=== PATIENT | male | born 1945 | race Caucasian/White ===

== ENCOUNTER 2022-08-05 07:43 | Inpatient (IN) | payer MEDICARE ==
[2022-08-05] MEDS ORDERED: SODIUM CHLORIDE 0.9% 500 ML 500 ML IV STA (08:11)
[2022-08-05] MEDS ORDERED: KETOROLAC 15 MG/ML 1 ML VIAL IVP STA (08:12)
[2022-08-05 08:36] LABS: Basophils # (A) 0.1 k/uL (0-0.2); Basophils % (A) 1 %; Eosinophils # (A) 0.3 k/uL (0-0.7); Eosinophils % (A) 3 %; HCT 32.5 % (39.0-53.0); HGB 10.5 gm/dL (13.0-17.5); Lymphocytes # (A) 0.4 k/uL (1.0-4.8); Lymphocytes % (A) 4 %; MCH 32.5 pg (25.0-35.0); MCHC 32.4 g/dL (31.0-37.0); MCV 100.4 fL (80.0-100.0); Mean Platelet Volume 8.3; Monocytes # (A) 0.5 k/uL (0-1.0); Monocytes % (A) 5 %; Neutrophils # (A) 9.2 k/uL (1.3-7.7); Neutrophils % (A) 87 %; Platelet Count 336 k/uL (150-450); RBC 3.23 m/uL (4.30-5.90); WBC 10.6 k/uL (3.8-10.6)
--- NOTE | 2022-08-05 08:37 | ED ---
Back Pain HPI - General Chief Complaint: Back Pain/Injury Stated Complaint: back pain Time Seen by Provider: 08/05/22 07:52 Source: patient Limitations: no limitations - History of Present Illness Initial Comments: Patient is a 77-year-old male who presents to the emergency department for back pain. Patient has had mild lower back pain for the past week. He denies injury no recent falls. Pain is not influenced by movement. There is no leg pain or weakness. No numbness or tingling. Patient also reports intermittent dysuria and frequent urination. He denies history of urinary tract infection. He has not noticed any blood in the urine. No history of kidney stone. He denies abdominal pain, nausea, vomiting, diarrhea, constipation. No fever or chills. No chest pain or shortness of breath. Patient hasn't had a primary care provider for many years. He denies history of kidney disease. - Related Data Allergies Allergy/AdvReac Type Severity Reaction Status Date / Time No Known Allergies Allergy Verified 08/05/22 07:51 Review of Systems ROS Statement: Those systems with pertinent positive or pertinent negative responses have been documented in the HPI. ROS Other: All systems not noted in ROS Statement are negative. Past Medical History Past Medical History: No Reported History History of Any Multi-Drug Resistant Organisms: None Reported Additional Past Surgical History / Comment(s): perforated ulcer, tongue surgery. Past Psychological History: No Psychological Hx Reported Smoking Status: Former smoker Past Alcohol Use History: Occasional Past Drug Use History: None Reported General Exam Limitations: no limitations General appearance: alert, in no apparent distress Head exam: Present: atraumatic, normocephalic, normal inspection Eye exam: Present: normal appearance, PERRL, EOMI. Absent: scleral icterus, conjunctival injection, periorbital swelling Respiratory exam: Present: normal lung sounds bilaterally. Absent: respiratory distress, wheezes, rales, rhonchi, stridor Cardiovascular Exam: Present: regular rate, normal rhythm, normal heart sounds. Absent: systolic murmur, diastolic murmur, rubs, gallop, clicks GI/Abdominal exam: Present: soft, normal bowel sounds. Absent: distended, tenderness, guarding, rebound, rigid Extremities exam: Present: normal inspection, full ROM, normal capillary refill Back exam: Present: normal inspection, full ROM. Absent: CVA tenderness (R), CVA tenderness (L), paraspinal tenderness, vertebral tenderness Neurological exam: Present: alert, oriented X3, CN II-XII intact Psychiatric exam: Present: normal affect, normal mood Course Vital Signs 08/05/22 08/05/22 08/05/22 07:45 10:01 10:11 Temperature 97.4 F L Pulse Rate 85 77 78 Respiratory 16 Rate Blood Pressure 167/79 O2 Sat by Pulse 98 Oximetry Medical Decision Making - Medical Decision Making EKG taken at 9:46, interpreted by me Sinus rhythm, no ST segment or T-wave abnormalities Ventricular rate 79, VT interval 151, QRS duration 109, QTC 406 Was pt. sent in by a medical professional or institution (, PA, FURNITURE FINISHER APPRENTICE, urgent care, hospital, or [place] health care facility...) When possible be specific @ -No Did you speak to anyone other than the patient for history (EMS, parent, family, police, friend...)? What history was obtained from this source @ -No Did you review nursing and triage notes (agree or disagree)? Why? @ -I reviewed and agree with nursing and triage notes Were old charts reviewed (outside hosp., previous admission, EMS record, old EKG, old radiological studies, urgent care reports/EKG's, [place] health care facility records)? Report findings @ -No old charts were reviewed Differential Diagnosis (chest pain, altered mental status, abdominal pain women, abdominal pain men, vaginal bleeding, weakness, fever, dyspnea, syncope, headache, dizziness, GI bleed, back pain, seizure, CVA, palpatations, mental health)? @ -Differential Back Pain: Strain, zoster, cauda equina syndrome, epidural abscess, vertebral osteomyelitis, discitis, fracture, subluxation, disc herniation, DJD, spinal stenosis, dissection, AAA, pancreatitis, peptic ulcer disease, pyelonephritis, kidney stone, acute renal failure. this is not meant to be an all-inclusive list. EKG interpreted by me (3pts min.). @ -As above X-rays interpreted by me (1pt min.). @ -None done CT interpreted by me (1pt min.). @ -None done U/S interpreted by me (1pt. min.). @ -No. Ultrasound report shows moderate to severe hydronephrosis bilaterally What testing was considered but not performed or refused? (CT, X-rays, U/S, labs)? Why? @ -None What meds were considered but not given or refused? Why? @ -None Did you discuss the management of the patient with other professionals (professionals i.e. , PA, FURNITURE FINISHER APPRENTICE, lab, RT, psych nurse, medical social worker, watch inspector final movement, teacher, youth probation officer, case therapist)? Give summary @ -No Was smoking cessation discussed for >3mins.? @ -No Was critical care preformed (if so, how long)? @ -No Were there social determinants of health that impacted care today? How? (Homelessness, low income, unemployed, alcoholism, drug addiction, transportation, low edu. Level, literacy, decrease access to med. care, fpc, rehab)? @ -No Was there de-escalation of care discussed even if they declined (Discuss DNR or withdrawal of care, Hospice)? DNR status @ -No What co-morbidities impacted this encounter? (DM, HTN, Smoking, COPD, CAD, Cancer, CVA, ARF, Chemo, Hep., AIDS, mental health diagnosis, sleep apnea, morbid obesity)? @ -None Was patient admitted / discharged? Hospital course, mention meds given and route, prescriptions, significant lab abnormalities, going to OR and other pertinent info. @ -Patient presenting for back pain. No symptoms or signs of cauda equina. Laboratory studies obtained. Patient in acute renal failure. Creatinine at 20.83, BUN a 175, no previous for comparison. There is anion gap acidosis, carbon dioxide at 7, anion gap at 26. Patient is hyperkalemic at 6.9. Ultrasound report shows moderate to severe hydronephrosis bilaterally. Patient treated with hyperkalemia regimen. Vázquez catheter placed 1200 cc urine output. Case discussed with Dr. Rliey patient will have repeat labs in 4 hours. Case discussed with Dr. Dugan who accepts admission. Undiagnosed new problem with uncertain prognosis? @ -No Drug Therapy requiring intensive monitoring for toxicity (Heparin, Nitro, Insulin, Cardizem)? @ -No Were any procedures done? @ -No Diagnosis/symptom? @ -Acute renal failure, urinary retention Acute, or Chronic, or Acute on Chronic? @ -acute Uncomplicated (without systemic symptoms) or Complicated (systemic symptoms)? @ -uncomplicated Side effects of treatment? @ -No Exacerbation, Progression, or Severe Exacerbation? @ -No Poses a threat to life or bodily function? How? (Chest pain, USA, GA, pneumonia, PE, COPD, DKA, ARF, appy, cholecystitis, CVA, Diverticulitis, Homicidal, Suicidal, threat to staff... and all critical care pts) @ -No Dr. Su is my attending - Lab Data Result diagrams: 08/05/22 08:22 08/05/22 08:22 Lab Results 08/05/22 08/05/22 Range/Units 08:22 08:22 WBC 10.6 (3.8-10.6) k/uL RBC 3.23 L (4.30-5.90) m/uL Hgb 10.5 L (13.0-17.5) gm/dL Hct 32.5 L (39.0-53.0) % MCV 100.4 H (80.0-100.0) fL MCH 32.5 (25.0-35.0) pg MCHC 32.4 (31.0-37.0) g/dL RDW 14.0 (11.5-15.5) % Plt Count 336 (150-450) k/uL MPV 8.3 Neutrophils % 87 % Lymphocytes % 4 % Monocytes % 5 % Eosinophils % 3 % Basophils % 1 % Neutrophils # 9.2 H (1.3-7.7) k/uL Lymphocytes # 0.4 L (1.0-4.8) k/uL Monocytes # 0.5 (0-1.0) k/uL Eosinophils # 0.3 (0-0.7) k/uL Basophils # 0.1 (0-0.2) k/uL Sodium 135 L (137-145) mmol/L Potassium 6.9 H* (3.5-5.1) mmol/L Chloride 102 (98-107) mmol/L Carbon Dioxide 7 L* (22-30) mmol/L Anion Gap 26 mmol/L BUN 175 H* (9-20) mg/dL Creatinine 20.83 H* (0.66-1.25) mg/dL Est GFR (CKD-EPI)AfAm 2 (>60 ml/min/1.73 sqM) Est GFR (CKD-EPI)NonAf 2 (>60 ml/min/1.73 sqM) Glucose 78 (74-99) mg/dL Calcium 9.0 (8.4-10.2) mg/dL Total Bilirubin 1.0 (0.2-1.3) mg/dL AST 17 (17-59) U/L ALT 17 (4-49) U/L Alkaline Phosphatase 56 (38-126) U/L Total Protein 6.1 L (6.3-8.2) g/dL Albumin 3.6 (3.5-5.0) g/dL Lipase 365 H (23-300) U/L Disposition Clinical Impression: Acute renal failure, Urinary retention Disposition: ADMITTED IP TO THIS [facility] Condition: Stable
[2022-08-05 08:52] LABS: Albumin 3.6 g/dL (3.5-5.0); Total Protein 6.1 g/dL (6.3-8.2)
[2022-08-05 09:05] LABS: Potassium 6.9 mmol/L (3.5-5.1)
[2022-08-05] MEDS ORDERED: INSULIN REGULAR 100 UNIT/ML VIAL (IV) IV ONE ×2 (09:37→12:29)
[2022-08-05] MEDS ORDERED: SODIUM BICARB 8.4% 50 ML SYR (1 MEQ/ML) IV ONE (09:37)
[2022-08-05] MEDS ORDERED: ALBUTEROL NEB (CONC) 2.5 MG/0.5 ML INHALATION ONE (09:37)
[2022-08-05] MEDS ORDERED: CALCIUM GLUCONATE IN NACL 1 GM in SALINE 1 100ML.BAG IVPB ONE (09:37)
[2022-08-05] MEDS ORDERED: DEXTROSE 50% SYRINGE 50 ML IVP ONE (09:37)
[2022-08-05] MEDS ORDERED: SODIUM POLYSTYRENE SULFONATE 15 GM/60 ML BOTTLE PO STA (09:37)
--- NOTE | 2022-08-05 10:13 | US ---
EXAMINATION TYPE: US kidneys/renal and bladder DATE OF EXAM: 08/05/2022 COMPARISON: NONE CLINICAL INDICATION: Male, 77 years old with history of renal failure; EXAM MEASUREMENTS: Right Kidney: 10.5 x 5.1 x 5.0 cm Left Kidney: 13.1 x 8.5 x 6.5 cm Right Kidney: Hydronephrosis noted Left Kidney: Hydronephrosis noted Bladder: overly distended IMPRESSION: Moderate to severe bilateral hydronephrosis. Follow-up is advised.
[2022-08-05 10:54] LABS: Appearance,Urine Clear (Clear); Bilirubin,Urine Negative (Negative); Blood,Urine Moderate (Negative); Color,Urine Yellow; Glucose,Urine (UA) Negative (Negative); Ketones,Urine Negative (Negative); Leukocyte Esterase,Urine Negative (Negative); Mucus,Urine Rare /hpf; Nitrite,Urine Negative (Negative); Protein,Urine Negative (Negative); RBC,Urine 54 /hpf (0-5); Specific Gravity,Urine 1.011 (1.001-1.035); Urobilinogen,Urine <2.0 mg/dL (<2.0); WBC,Urine 4 /hpf (0-5)
[2022-08-05] MEDS ORDERED: NALOXONE 0.4 MG/ML 1 ML VIAL IV PRN (10:56)
[2022-08-05] MEDS ORDERED: ACETAMINOPHEN TAB 325 MG TAB PO PRN (10:56)
[2022-08-05] MEDS ORDERED: SODIUM CHLORIDE 0.9% 1,000 ML IV STA (11:01)
[2022-08-05] MEDS ORDERED: DEXTROSE 50% SYRINGE 50 ML IVP STA (12:29)
[2022-08-05] MEDS: DEXTROSE 5% IN WATER 1,000 ML with SODIUM BICARB (1 MEQ/ML) 150 ML IV SCH (12:55)
[2022-08-05 14:51] LABS: ALT 19 U/L (4-49); AST 17 U/L (17-59); Albumin 3.1 g/dL (3.5-5.0); Albumin/Globulin Ratio 1.3; Alkaline Phosphatase 49 U/L (38-126); Anion Gap 19 mmol/L; Calcium 9.2 mg/dL (8.4-10.2); Carbon Dioxide 12 mmol/L (22-30); Chloride 108 mmol/L (98-107); Globulin 2.3 g/dL; Glucose 97 mg/dL (74-99); Sodium 139 mmol/L (137-145); Total Bilirubin 0.7 mg/dL (0.2-1.3); Total Protein 5.4 g/dL (6.3-8.2)
[2022-08-05 15:26] LABS: African American GFR (CKD) 3 (>60 ml/min/1.73 sqM); Non-African American GFR(CKD) 2 (>60 ml/min/1.73 sqM)
[2022-08-05 15:48] LABS: Blood Urea Nitrogen 157 mg/dL (9-20)
[2022-08-05 19:54] LABS: Glucose,Whole Blood 222 mg/dL (70-110)
--- NOTE | 2022-08-05 21:29 | P.HPIM ---
History of Present Illness H&P Date: 08/05/22 Chief Complaint: Back pain Patient is a 77-year-old male with a known history of hearing disorder/deafness, history of tongue cancer status post surgery with lymph node biopsy, perforated ulcer in 1984, prior history of smoking and alcohol abuse presents to ER with complaints of back pain. Patient states that he has been having symptoms for the past 1 week. Denies any complaints of shooting down pain in the legs. Pain does not get worse with movement. No numbness or tingling in the legs. For past 1 week patient has been having frequent urination but only can void small quantities. He was also having lower abdominal discomfort. Denies any blood in the urine. No fever no chills. No nausea vomiting abdominal pain or diarrhea or constipation. Patient has not had any primary care physician for many years. Denies any recent medical problems. Bladder ultrasound showed moderate to severe bilateral hydronephrosis. Follow- up visit as advised. EKG showed sinus rhythm. No T wave changes Laboratory showed WBC 10.6 hemoglobin 10.5 and platelets 336 Sodium 135 potassium 6.9 chloride 102 bicarb is 7 BUN 26 and gap 26, BUN 175 and creatinine 20.8 and total protein 6.1 and lipase level is 365 Urinalysis showed moderate blood elevated RBCs and WBCs 4. Placed on Vázquez catheter in the ER with 1300 cc of dark-colored urine. Review of Systems Constitutional: Patient denies any fever or chills . no Generalized weakness. Abdomen: Patient denied any nausea or vomiting or abd. pain Cardiovascular: Patient denies any chest pain or short of breath no palpitations. Respiratory: patient denied any cough . no sputum production. No shortness of breath Neurologic: Patient denied any numbness or tingling headache. Musculoskeletal: Patient denies any complaints of joint swelling or deformity. Lower back pain. Skin: Negative Psychiatric: Negative Endocrine: No heat or cold intolerance. No recent weight gain. Genitourinary: Did have frequency of urination and dysuria. All other 14 point ROS negative except the above Past Medical History Past Medical History: Hearing Disorder / Deafness Additional Past Medical History / Comment(s): tongue cancer History of Any Multi-Drug Resistant Organisms: None Reported Additional Past Surgical History / Comment(s): perforated ulcer 1984, tongue surgery for cancer tumor with lymph node biopsy, left 1st finger tendon repair Past Anesthesia/Blood Transfusion Reactions: No Reported Reaction Past Psychological History: No Psychological Hx Reported Smoking Status: Former smoker Past Alcohol Use History: Abuse Past Drug Use History: None Reported Medications and Allergies Home Medications Medication Instructions Recorded Confirmed Type Naproxen Sodium [Aleve] 220 mg PO DAILY 08/05/22 08/05/22 History Allergies Allergy/AdvReac Type Severity Reaction Status Date / Time No Known Allergies Allergy Verified 08/05/22 11:27 Physical Exam Vitals: Vital Signs Temp Pulse Pulse Resp BP BP Pulse Ox 08/05/22 13:20 97.0 F L 83 19 138/68 98 08/05/22 11:25 98.0 F 78 18 154/82 97 08/05/22 10:11 78 08/05/22 10:01 77 08/05/22 07:45 97.4 F L 85 16 167/79 98 Intake and Output 08/04/22 08/05/22 08/05/22 22:59 06:59 14:59 Intake Total 1348 Output Total 3050 Balance -1702 Intake: Intake, IV Titration 1230 Amount Calcium Gluconate in NaCl 100 1 gm In Saline 1 100ml. bag @ 400 mls/hr IVPB ONCE ONE Rx#:[id number] Dextrose 5% in Water 1, 480 000 ml @ 80 mls/hr IV . [id number] BRADLEY with Sodium Bicarb (1 Meq/ml) 150 ml Rx#:[id number] Sodium Chloride 0.9% 1, 150 000 ml @ 75 mls/hr IV . [id number] STA Rx#:[id number] Sodium Chloride 0.9% 500 500 ml 500 ml @ 999 mls/hr IV .Q31M STA Rx#:[id number] Oral 118 Output: Urine 3050 Uretheral (Vázuqez) 1200 Other: Voiding Method Indwelling Catheter Weight 81.647 kg PHYSICAL EXAMINATION: Patient is lying in the bed comfortably, no acute distress, awake alert and oriented. hard of hearing. HEENT: Normocephalic. Neck is supple. Pupils reactive. Nostrils clear. Oral cavity is moist. Neck reveals no JVD, carotid bruits, or thyromegaly. CHEST EXAMINATION: Trachea is central. Symmetrical expansion. Lung osman clear to auscultation and percussion. CARDIAC: Normal S1, S2 with no gallops. No murmurs ABDOMEN: Soft. Bowel sounds present. Nontender. No organomegaly. No abdominal bruits. Extremities: reveal no edema. No clubbing or cyanosis Neurologically awake, alert, oriented x2-3 with well-coordinated movements. No focal deficits noted Skin: No rash or skin lesions. Psychiatric: Coperative. Nonsuicidal, Musculoskeletal: No joint swelling or deformity. Normal range of motion. Results CBC & Chem 7: 08/05/22 08:22 08/05/22 14:27 Labs: Abnormal Lab Results - Last 24 Hours (Table) 08/05/22 08/05/22 08/05/22 Range/Units 08:22 08:22 10:30 RBC 3.23 L (4.30-5.90) m/uL Hgb 10.5 L (13.0-17.5) gm/dL Hct 32.5 L (39.0-53.0) % MCV 100.4 H (80.0-100.0) fL Neutrophils # 9.2 H (1.3-7.7) k/uL Lymphocytes # 0.4 L (1.0-4.8) k/uL Sodium 135 L (137-145) mmol/L Potassium 6.9 H* (3.5-5.1) mmol/L Carbon Dioxide 7 L* (22-30) mmol/L BUN 175 H* (9-20) mg/dL Creatinine 20.83 H* (0.66-1.25) mg/dL Total Protein 6.1 L (6.3-8.2) g/dL Lipase 365 H (23-300) U/L Urine Blood Moderate H (Negative) Urine RBC 54 H (0-5) /hpf Urine Mucus Rare H (None) /hpf 08/05/22 Range/Units 10:41 RBC (4.30-5.90) m/uL Hgb (13.0-17.5) gm/dL Hct (39.0-53.0) % MCV (80.0-100.0) fL Neutrophils # (1.3-7.7) k/uL Lymphocytes # (1.0-4.8) k/uL Sodium (137-145) mmol/L Potassium 7.5 H* (3.5-5.1) mmol/L Carbon Dioxide (22-30) mmol/L BUN (9-20) mg/dL Creatinine (0.66-1.25) mg/dL Total Protein (6.3-8.2) g/dL Lipase (23-300) U/L Urine Blood (Negative) Urine RBC (0-5) /hpf Urine Mucus (None) /hpf Thrombosis Risk Factor Assmnt - DVT/VTE Prophylaxis DVT/VTE Prophylaxis: Pharmacologic Prophylaxis ordered - Choose All That Apply Each Risk Factor Represents 3 Points: Age 75 years or older Thrombosis Risk Factor Assessment Total Risk Factor Score: 3 Thrombosis Risk Factor Assessment Level: Moderate Risk Assessment and Plan Assessment: Acute urinary retention with moderate left hydronephrosis Acute kidney injury due to obstructive uropathy. Severe hyperkalemia Macrocytic anemia with hemoglobin 10.5 History of tongue cancer s/p surgery with lymph node biopsy History of perforated ulcer in 1984 Prior history of smoking History of alcohol abuse DVT prophylaxis with heparin subcu GI prophylaxis with Pepcid daily Plan: Patient was given IV fluid in ER. Patient was also given calcium gluconate, IV insulin/D50 in the ER. Follow-up potassium level is 7.5. Continue with bicarb drip and follow-up repeat potassium level in an hour and consider MICU transfer if still elevated. Patient is status post Vázquez catheter placement. Nephrology and urology consult for evaluation. Continue telemetry monitoring. Discussed with the patient and his family at bedside in detail. Time with Patient: Greater than 30
[2022-08-05 23:44] LABS: African American GFR (CKD) 5 (>60 ml/min/1.73 sqM); Anion Gap 12 mmol/L; Calcium 8.9 mg/dL (8.4-10.2); Carbon Dioxide 18 mmol/L (22-30); Chloride 111 mmol/L (98-107); Glucose 176 mg/dL (74-99); Non-African American GFR(CKD) 5 (>60 ml/min/1.73 sqM); Sodium 141 mmol/L (137-145)
[2022-08-05 23:55] LABS: Blood Urea Nitrogen 110 mg/dL (9-20)
[2022-08-05] MEDS: HEPARIN SODIUM,PORCINE/PF 5,000 UNIT/0.5 ML SYRINGE SQ SCH (23:59)
[2022-08-06] MEDS: DEXTROSE 5% IN WATER 1,000 ML with SODIUM BICARB (1 MEQ/ML) 150 ML IV SCH ×2 (05:43→15:32)
[2022-08-06 05:50] LABS: Glucose,Whole Blood 156 mg/dL (70-110)
[2022-08-06] MEDS: FAMOTIDINE 20 MG TAB PO SCH (09:47)
[2022-08-06] MEDS: HEPARIN SODIUM,PORCINE/PF 5,000 UNIT/0.5 ML SYRINGE SQ SCH ×3 (09:47→23:59)
--- NOTE | 2022-08-06 11:02 | P.GSCN ---
History of Present Illness Consult date: 08/06/22 Reason for Consult: Urinary retention Requesting physician: Ramón Dugan History of present illness: Patient is a 77-year-old male who presented to the emergency department on 08/05/22 for lower back pain x 1 week. He denied injury no recent falls. No leg pain or weakness. No numbness or tingling. Patient also reported intermittent dysuria and frequent urination. He denied abdominal pain, nausea, vomiting, mukund rrhea, constipation. No fever or chills. No chest pain or shortness of breath. Patient has not had a primary care provider for many years. He denied history of kidney disease. No leukocytosis present, his creatinine was 20.83, his urinalysis did not suggest infection. Nephrology following for LAURA. Renal and bladder ultrasound shows moderate to severe bilateral hydronephrosis and an overly distended bladder. The Vázquez catheter was placed with 1.2 L returned. We have been consulted for urinary retention. Review of Systems - Constitutional Reports chronic pain, Denies chills, Denies fever - Gastrointestinal Denies abdominal pain, Denies nausea, Denies vomiting - Genitourinary Reports dysuria, Reports urinary frequency, Denies hematuria Past Medical History Past Medical History: Hearing Disorder / Deafness Additional Past Medical History / Comment(s): tongue cancer History of Any Multi-Drug Resistant Organisms: None Reported Additional Past Surgical History / Comment(s): perforated ulcer 1984, tongue surgery for cancer tumor with lymph node biopsy, left 1st finger tendon repair Past Anesthesia/Blood Transfusion Reactions: No Reported Reaction Past Psychological History: No Psychological Hx Reported Smoking Status: Former smoker Past Alcohol Use History: Abuse Past Drug Use History: None Reported Medications and Allergies Home Medications Medication Instructions Recorded Confirmed Type Naproxen Sodium [Aleve] 220 mg PO DAILY 08/05/22 08/05/22 History Allergies Allergy/AdvReac Type Severity Reaction Status Date / Time No Known Allergies Allergy Verified 08/05/22 11:27 Surgical - Exam Vital Signs Temp Pulse Resp BP Pulse Ox 97.4 F L 85 16 167/79 98 08/05/22 07:45 08/05/22 07:45 08/05/22 07:45 08/05/22 07:45 08/05/22 07:45 General: Well developed, well nourished. No acute distress. HEENT: Head is atraumatic, normocephalic. Lungs: Respirations even and nonlabored. On RA. Abdomen/GI: Soft, non-distended. No guarding, rigidity, or abdominal tenderness. : Normal phallus, normal urethral meatus. The scrotum and testes are normal. Vázquez catheter draining dark yellow urine Skin: Warm and dry Neurologic: Alert and oriented 3, CN II-XII grossly intact. No focal deficits. Psychiatric: Appropriate mood and affect. Results - Labs 08/05/22 08:22 08/05/22 22:27 Abnormal Lab Results - Last 24 Hours (Table) 08/05/22 08/05/22 08/05/22 Range/Units 10:30 10:41 14:27 Potassium 7.5 H* (3.5-5.1) mmol/L Chloride 108 H (98-107) mmol/L Carbon Dioxide 12 L (22-30) mmol/L BUN 157 H* (9-20) mg/dL Creatinine 16.64 H* (0.66-1.25) mg/dL Glucose (74-99) mg/dL POC Glucose (mg/dL) (70-110) mg/dL Total Protein 5.4 L (6.3-8.2) g/dL Albumin 3.1 L (3.5-5.0) g/dL Urine Blood Moderate H (Negative) Urine RBC 54 H (0-5) /hpf Urine Mucus Rare H (None) /hpf 08/05/22 08/05/22 08/06/22 Range/Units 19:52 22:27 05:48 Potassium (3.5-5.1) mmol/L Chloride 111 H (98-107) mmol/L Carbon Dioxide 18 L (22-30) mmol/L BUN 110 H* (9-20) mg/dL Creatinine 9.94 H* (0.66-1.25) mg/dL Glucose 176 H (74-99) mg/dL POC Glucose (mg/dL) 222 H 156 H (70-110) mg/dL Total Protein (6.3-8.2) g/dL Albumin (3.5-5.0) g/dL Urine Blood (Negative) Urine RBC (0-5) /hpf Urine Mucus (None) /hpf Diabetes panel 08/05/22 08/05/22 08/05/22 Range/Units 10:41 14:27 22:27 Sodium 139 141 (137-145) mmol/L Potassium 7.5 H* 5.0 5.0 (3.5-5.1) mmol/L Chloride 108 H 111 H (98-107) mmol/L Carbon Dioxide 12 L 18 L (22-30) mmol/L BUN 157 H* 110 H* (9-20) mg/dL Creatinine 16.64 H* 9.94 H* (0.66-1.25) mg/dL Glucose 97 176 H (74-99) mg/dL Calcium 9.2 8.9 (8.4-10.2) mg/dL AST 17 (17-59) U/L ALT 19 (4-49) U/L Alkaline Phosphatase 49 (38-126) U/L Total Protein 5.4 L (6.3-8.2) g/dL Albumin 3.1 L (3.5-5.0) g/dL Calcium panel 08/05/22 08/05/22 Range/Units 14:27 22:27 Calcium 9.2 8.9 (8.4-10.2) mg/dL Albumin 3.1 L (3.5-5.0) g/dL Pituitary panel 08/05/22 08/05/22 08/05/22 Range/Units 10:41 14:27 22:27 Sodium 139 141 (137-145) mmol/L Potassium 7.5 H* 5.0 5.0 (3.5-5.1) mmol/L Chloride 108 H 111 H (98-107) mmol/L Carbon Dioxide 12 L 18 L (22-30) mmol/L BUN 157 H* 110 H* (9-20) mg/dL Creatinine 16.64 H* 9.94 H* (0.66-1.25) mg/dL Glucose 97 176 H (74-99) mg/dL Calcium 9.2 8.9 (8.4-10.2) mg/dL Adrenal panel 08/05/22 08/05/22 08/05/22 Range/Units 10:41 14:27 22:27 Sodium 139 141 (137-145) mmol/L Potassium 7.5 H* 5.0 5.0 (3.5-5.1) mmol/L Chloride 108 H 111 H (98-107) mmol/L Carbon Dioxide 12 L 18 L (22-30) mmol/L BUN 157 H* 110 H* (9-20) mg/dL Creatinine 16.64 H* 9.94 H* (0.66-1.25) mg/dL Glucose 97 176 H (74-99) mg/dL Calcium 9.2 8.9 (8.4-10.2) mg/dL Total Bilirubin 0.7 (0.2-1.3) mg/dL AST 17 (17-59) U/L ALT 19 (4-49) U/L Alkaline Phosphatase 49 (38-126) U/L Total Protein 5.4 L (6.3-8.2) g/dL Albumin 3.1 L (3.5-5.0) g/dL - Imaging US - kidney/bladder: report reviewed Assessment and Plan Assessment: The patient is resting in bed. He does report a history of chronic lower back pain. No history of kidney stones or recurrent UTIs. No prior history of renal failure. The patient does report some dysuria and urinary frequency for approximately one week. His serum creatinine is trending down and was 9.94 yesterday. Today's labs pending. A digital prostate exam was performed by Dr. Olmos and revealed a moderately enlarged prostate and a left sided nodule. The patient's urinary retention is likely secondary to his prostate enlargement. (1) Urinary retention Current Visit: Yes Status: Acute Code(s): R33.9 - RETENTION OF URINE, UNSPECIFIED SNOMED Code(s): 105384359 Plan: - Start Flomax - Check PSA - Monitor creatinine - Maintain Vázquez catheter until renal function is back to baseline Thank you for this consultation. Impression and plan of care have been directed as dictated by the signing physician. Jazmin Dela Cruz nurse practitioner acting as scribe for signing physician. Jazmin Dela Cruz [facility] Palliative Care/Urology Spectralink [id number] Email: [email or web address] The patient has been examined and interviewed by me. I concur with the above- mentioned note. The patient will be placed on Flomax and the catheter should be left in several days before a voiding trial was initiated. We will follow this patient. Manjinder Olmos M.D.
[2022-08-06] MEDS: TAMSULOSIN 0.4 MG CAP.ER.24H PO SCH (11:13)
[2022-08-06 11:22] LABS: Glucose,Whole Blood 196 mg/dL (70-110)
[2022-08-06 11:48] LABS: Basophils # (A) 0.02 X 10*3/uL (0.00-0.10); Basophils % (A) 0.3 %; Eosinophils # (A) 0.34 X 10*3/uL (0.04-0.35); Eosinophils % (A) 5.1 %; HCT 28.4 % (39.6-50.0); HGB 9.2 g/dL (13.0-17.0); Immature Grans, Automated 1.3 %; Lymphocytes # (A) 0.37 X 10*3/uL (0.90-5.00); Lymphocytes % (A) 5.5 %; MCH 31.4 pg (27.0-32.0); MCHC 32.4 g/dL (32.0-37.0); MCV 96.9 fL (80.0-97.0); Mean Platelet Volume 10.9 fL (9.5-12.2); Monocytes # (A) 0.63 X 10*3/uL (0.20-1.00); Monocytes % (A) 9.4 %; NRBC Per 100 WBC 0 /100 WBCS (0.0-0.0); Neutrophils # (A) 5.25 X 10*3/uL (1.80-7.70); Neutrophils % (A) 78.4 %; Platelet Count 296 X 10*3/uL (140-440); RBC 2.93 X 10*6/uL (4.40-5.60); RDW 14.4 % (11.5-14.5)
--- NOTE | 2022-08-06 12:02 | P.NPCON ---
History of Present Illness - Reason for Consult acute renal failure - History of Present Illness Reason for consultation: Acute kidney injury History of present illness: Patient is a 77-year-old male seen in renal consultation for acute kidney injury. Unknown as to what his baseline renal function is. Patient's creatinine was 20.8 on admission and is down to 9.9 today. Patient is not a very reliable historian. It is noted that he came to the hospital with back pain. He was noted to have urinary retention and had a Vázquez catheter placed. Urine output documented as overnight liters in the last 24 hours. Hemodynamically stable. I do see naproxen and his home medication list but is unclear as to how much she was taking and how often. Patient tells me that he ran out of water at his house about 2 weeks ago and since then his oral intake has been poor. Ultrasound showed bilateral hydronephrosis. Denies history of heart disease. No history of diabetes. No vomiting or diarrhea. No fever or chills. Vital signs are stable. General: No acute distress. HEENT: Head exam is unremarkable. LUNGS: No audible rhonchi or wheezes. HEART: Rate and Rhythm are regular. ABDOMEN: Soft, nontender. EXTREMITITES: No edema. Past Medical History Past Medical History: Hearing Disorder / Deafness Additional Past Medical History / Comment(s): tongue cancer History of Any Multi-Drug Resistant Organisms: None Reported Additional Past Surgical History / Comment(s): perforated ulcer 1984, tongue surgery for cancer tumor with lymph node biopsy, left 1st finger tendon repair Past Anesthesia/Blood Transfusion Reactions: No Reported Reaction Past Psychological History: No Psychological Hx Reported Smoking Status: Former smoker Past Alcohol Use History: Abuse Past Drug Use History: None Reported Medications and Allergies Home Medications Medication Instructions Recorded Confirmed Type Naproxen Sodium [Aleve] 220 mg PO DAILY 08/05/22 08/05/22 History Allergies Allergy/AdvReac Type Severity Reaction Status Date / Time No Known Allergies Allergy Verified 08/05/22 11:27 Physical Exam Vitals: Vital Signs Temp Pulse Resp BP Pulse Ox 08/06/22 07:54 98.2 F 78 19 108/74 96 08/06/22 02:07 98.4 F 84 19 97 08/05/22 19:24 97.9 F 79 18 155/73 96 08/05/22 13:20 97.0 F L 83 19 138/68 98 Intake and Output 08/05/22 08/06/22 08/06/22 22:59 06:59 14:59 Intake Total 118 960 Output Total 2900 3300 940 Balance -2782 -2340 -940 Intake: Intake, IV Titration 960 Amount Dextrose 5% in Water 1, 960 000 ml @ 80 mls/hr IV . [id number] BRADLEY with Sodium Bicarb (1 Meq/ml) 150 ml Rx#:[id number] Oral 118 Output: Urine 2900 3300 940 Uretheral (Vázquez) 2000 940 Other: Voiding Method Indwelling Catheter Indwelling Catheter Results - Lab Results Most recent lab results Calcium 8.9 mg/dL (8.4-10.2) 08/05/22 22:27 08/06/22 06:23 08/05/22 22:27 Assessment and Plan Plan: Assessment: 1. Acute kidney injury secondary to obstructive uropathy. Creatinine over 20 on admission and is 9.94 today. Nonoliguric. 2. Urinary retention with bilateral hydronephrosis. Has Vázquez catheter. Urology following. On Flomax. 3. Metabolic acidosis secondary to acute kidney injury maintained on bicarb drip. 4. Hyperkalemia secondary to obstructive uropathy and acidosis. Improved. 5. Anemia. Rule out iron deficiency. Plan: Maintain bicarb drip. Encouraged oral intake. Avoid nephrotoxins. Check iron studies. Continue to monitor renal function and urine output. No need for renal replacement therapy at this time. Thank you for the consultation. I will continue to follow the patient with you during his hospital stay.
[2022-08-06 12:23] LABS: African American GFR (CKD) 9.5 (60.0-200.0); Anion Gap 13.4 mmol/L (10.00-18.00); BUN/Creat Ratio 13.85 Ratio (12.00-20.00); Blood Urea Nitrogen 84.5 mg/dL (9.0-27.0); Calcium 9.2 mg/dL (8.7-10.3); Carbon Dioxide 20.6 mmol/L (20.0-27.5); Non-African American GFR(CKD) 8.2 (60.0-200.0); Potassium 4.9 mmol/L (3.5-5.5)
--- NOTE | 2022-08-06 16:22 | P.PN ---
Subjective Progress Note Date: 08/06/22 Patient is a 77-year-old male with a known history of hearing disorder/deafness, history of tongue cancer status post surgery with lymph node biopsy, perforated ulcer in 1984, prior history of smoking and alcohol abuse presents to ER with complaints of back pain. Patient states that he has been having symptoms for the past 1 week. Denies any complaints of shooting down pain in the legs. Pain does not get worse with movement. No numbness or tingling in the legs. For past 1 week patient has been having frequent urination but only can void small quantities. He was also having lower abdominal discomfort. Denies any blood in the urine. No fever no chills. No nausea vomiting abdominal pain or diarrhea or constipation. Patient has not had any primary care physician for many years. Denies any recent medical problems. Bladder ultrasound showed moderate to severe bilateral hydronephrosis. Follow- up visit as advised. EKG showed sinus rhythm. No T wave changes Laboratory showed WBC 10.6 hemoglobin 10.5 and platelets 336 Sodium 135 potassium 6.9 chloride 102 bicarb is 7 BUN 26 and gap 26, BUN 175 and creatinine 20.8 and total protein 6.1 and lipase level is 365 Urinalysis showed moderate blood elevated RBCs and WBCs 4. Placed on Vázquez catheter in the ER with 1300 cc of dark-colored urine. 08/06/2022 Patient is evaluated today resting in bed. Indwelling catheter remains, patient has had significant amount of urinary output. Urine is lightening in color. Creatinine has improved to 6.1. He remains on Bicarb gtt at 80. Reports feeling much better. Nephrology and urology are following. PSA is pending. Review of Systems Constitutional: Denied any fatigue denied any fever. Cardio vascular: denied any chest pain, palpitations Gastrointestinal: denied any nausea, vomiting, diarrhea Pulmonary: Denied any shortness of breath cough Neurologic denied any new focal deficits All inpatient medications were reviewed and appropriate changes in these medications as dictated in the interval history and assessment and plan. PHYSICAL EXAMINATION: GENERAL: The patient is alert and oriented x3, not in any acute distress. Well developed, well nourished. HEENT: Pupils are round and equally reacting to light. EOMI. No scleral icterus. No conjunctival pallor. Normocephalic, atraumatic. No pharyngeal erythema. No thyromegaly. CARDIOVASCULAR: S1 and S2 present. No murmurs, rubs, or gallops. PULMONARY: Chest is clear to auscultation, no wheezing or crackles. ABDOMEN: Soft, nontender, nondistended, normoactive bowel sounds. No palpable organomegaly. MUSCULOSKELETAL: No joint swelling or deformity. EXTREMITIES: No cyanosis, clubbing, or pedal edema. NEUROLOGICAL: Gross neurological examination did not reveal any focal deficits. SKIN: No rashes. Assessment and Plan Assessment Acute urinary retention with moderate left hydronephrosis Acute kidney injury due to obstructive uropathy improving Severe hyperkalemia resolved Macrocytic anemia with hemoglobin 10.5 History of tongue cancer s/p surgery with lymph node biopsy History of perforated ulcer in 1984 Hyperglycemia check an A1C Prior history of smoking History of alcohol abuse DVT prophylaxis with heparin subcu GI prophylaxis with Pepcid daily Full Code Plan Continue IV fluids Continue indwelling catheter Continue accuchecks and novology Follow up labs in AM Nephrology and urology are following. The impression and plan of care has been dictated by Jaqueline Farrell, Nurse Practitioner as directed. Dr. Courtney MD I have performed a history and physical examination and medical decision making of this patient, discussed the same with the dictator, and agree with the dictators assessment and plan as written, documented as a scribe. Based on total visit time, I have performed more than 50% of this visit. Objective - Vital Signs Vital signs: Vital Signs Temp 98.7 F 08/06/22 13:16 Pulse 75 08/06/22 13:16 Resp 18 08/06/22 13:16 BP 161/90 08/06/22 13:16 Pulse Ox 96 08/06/22 13:16 FiO2 Intake & Output 08/05/22 08/06/22 08/06/22 18:59 06:59 18:59 Intake Total 1466 960 118 Output Total 5950 3397 4760 Balance -0419 -9043 -5949 Weight 81.647 kg Intake: Intake, IV Titration 1230 960 Amount Calcium Gluconate in NaCl 100 1 gm In Saline 1 100ml. bag @ 400 mls/hr IVPB ONCE ONE Rx#:[id number] Dextrose 5% in Water 1, 480 960 000 ml @ 80 mls/hr IV . [id number] BRADLEY with Sodium Bicarb (1 Meq/ml) 150 ml Rx#:[id number] Sodium Chloride 0.9% 1, 150 000 ml @ 75 mls/hr IV . [id number] STA Rx#:[id number] Sodium Chloride 0.9% 500 500 ml 500 ml @ 999 mls/hr IV .Q31M STA Rx#:[id number] Oral 236 118 Output: Urine 5950 3300 2640 Uretheral (Vázquez) 1200 2000 940 Other: Voiding Method Indwelling Catheter Indwelling Catheter Indwelling Catheter - Labs CBC & Chem 7: 08/06/22 06:23 08/06/22 06:23 Labs: Abnormal Lab Results - Last 24 Hours (Table) 08/05/22 08/05/22 08/05/22 Range/Units 14:27 19:52 22:27 RBC (4.40-5.60) X 10*6/uL Hgb (13.0-17.0) g/dL Hct (39.6-50.0) % Immature Gran # (0.00-0.04) X 10*3/uL Lymphocytes # (0.90-5.00) X 10*3/uL Sodium (135-145) mmol/L Chloride 111 H (98-107) mmol/L Carbon Dioxide 18 L (22-30) mmol/L BUN 110 H* (9-20) mg/dL Creatinine 16.64 H* 9.94 H* (0.66-1.25) mg/dL Est GFR (CKD-EPI)AfAm (60.0-200.0) Est GFR (CKD-EPI)NonAf (60.0-200.0) Glucose 176 H (74-99) mg/dL POC Glucose (mg/dL) 222 H (70-110) mg/dL Magnesium (1.5-2.4) mg/dL Vitamin B12 (200.0-944.0) pg/mL 08/06/22 08/06/22 08/06/22 Range/Units 05:48 06:23 06:23 RBC 2.93 L (4.40-5.60) X 10*6/uL Hgb 9.2 L (13.0-17.0) g/dL Hct 28.4 L (39.6-50.0) % Immature Gran # 0.09 H (0.00-0.04) X 10*3/uL Lymphocytes # 0.37 L (0.90-5.00) X 10*3/uL Sodium 147 H (135-145) mmol/L Chloride 113 H (98-107) mmol/L Carbon Dioxide (22-30) mmol/L BUN 84.5 H (9-20) mg/dL Creatinine 6.1 H (0.66-1.25) mg/dL Est GFR (CKD-EPI)AfAm 9.5 L (60.0-200.0) Est GFR (CKD-EPI)NonAf 8.2 L (60.0-200.0) Glucose 146 H (74-99) mg/dL POC Glucose (mg/dL) 156 H (70-110) mg/dL Magnesium (1.5-2.4) mg/dL Vitamin B12 1075.0 H (200.0-944.0) pg/mL 08/06/22 08/06/22 Range/Units 06:23 11:21 RBC (4.40-5.60) X 10*6/uL Hgb (13.0-17.0) g/dL Hct (39.6-50.0) % Immature Gran # (0.00-0.04) X 10*3/uL Lymphocytes # (0.90-5.00) X 10*3/uL Sodium (135-145) mmol/L Chloride (98-107) mmol/L Carbon Dioxide (22-30) mmol/L BUN (9-20) mg/dL Creatinine (0.66-1.25) mg/dL Est GFR (CKD-EPI)AfAm (60.0-200.0) Est GFR (CKD-EPI)NonAf (60.0-200.0) Glucose (74-99) mg/dL POC Glucose (mg/dL) 196 H (70-110) mg/dL Magnesium 2.5 H (1.5-2.4) mg/dL Vitamin B12 (200.0-944.0) pg/mL Assessment and Plan Time with Patient: Less than 30
[2022-08-06 16:39] LABS: Glucose,Whole Blood 160 mg/dL (70-110)
[2022-08-06 16:59] LABS: % Iron Saturation 25.69 (15.00-50.00)
[2022-08-06] MEDS: DEXTROSE 5% IN WATER 1,000 ML IV SCH (17:16)
[2022-08-06] MEDS: INSULIN ASPART (NovoLOG) 100 UNIT/ML VIAL SQ SCH ×2 (17:17→20:55)
[2022-08-06] MEDS: SODIUM BICARBONATE TAB 650 MG TAB PO SCH (20:48)
[2022-08-06 20:52] LABS: Glucose,Whole Blood 145 mg/dL (70-110)
[2022-08-07 06:00] LABS: Glucose,Whole Blood 134 mg/dL (70-110)
[2022-08-07] MEDS: INSULIN ASPART (NovoLOG) 100 UNIT/ML VIAL SQ SCH ×3 (06:05→17:17)
[2022-08-07 08:43] LABS: African American GFR (CKD) 50 (>60 ml/min/1.73 sqM); Anion Gap 4 mmol/L; Blood Urea Nitrogen 24 mg/dL (9-20); Calcium 9.1 mg/dL (8.4-10.2); Carbon Dioxide 28 mmol/L (22-30); Chloride 109 mmol/L (98-107); Glucose 114 mg/dL (74-99); Magnesium 1.9 mg/dL (1.6-2.3); Non-African American GFR(CKD) 43 (>60 ml/min/1.73 sqM); Potassium 4.4 mmol/L (3.5-5.1); Sodium 141 mmol/L (137-145)
[2022-08-07] MEDS: SODIUM BICARBONATE TAB 650 MG TAB PO SCH ×2 (09:11→21:02)
[2022-08-07] MEDS: FAMOTIDINE 20 MG TAB PO SCH (09:11)
[2022-08-07] MEDS: TAMSULOSIN 0.4 MG CAP.ER.24H PO SCH (09:11)
[2022-08-07] MEDS: HEPARIN SODIUM,PORCINE/PF 5,000 UNIT/0.5 ML SYRINGE SQ SCH ×2 (09:13→17:12)
[2022-08-07] MEDS ORDERED: hydrALAZINE HCL 20 MG/ML 1 ML VIAL IVP PRN (10:30)
--- NOTE | 2022-08-07 10:30 | P.PN ---
Subjective Patient is seen in follow-up for acute kidney injury. Renal function improving. Nonoliguric. Oral intake fair. No vomiting or diarrhea. Vital signs are stable. General: No acute distress. Lungs: No audible rhonchi or wheezes. HEART: Rate and Rhythm are regular. ABDOMEN: Nontender. EXTREMITITES: No edema. Objective - Vital Signs Vital signs: Vital Signs Temp 97.8 F 08/07/22 07:36 Pulse 77 08/07/22 09:57 Resp 18 08/07/22 09:57 BP 184/89 08/07/22 07:36 Pulse Ox 96 08/07/22 07:36 FiO2 Intake & Output 08/06/22 08/07/22 08/07/22 18:59 06:59 18:59 Intake Total 118 Output Total 4090 1900 400 Balance -3972 -1900 -400 Intake: Oral 118 Output: Urine 4090 1900 400 Uretheral (Vázquez) 2140 Other: Voiding Method Indwelling Catheter Indwelling Catheter Indwelling Catheter - Labs CBC & Chem 7: 08/06/22 06:23 08/07/22 07:48 Labs: Abnormal Lab Results - Last 24 Hours (Table) 08/06/22 08/06/22 08/06/22 Range/Units 06:23 06:23 06:23 RBC 2.93 L (4.40-5.60) X 10*6/uL Hgb 9.2 L (13.0-17.0) g/dL Hct 28.4 L (39.6-50.0) % Immature Gran # 0.09 H (0.00-0.04) X 10*3/uL Lymphocytes # 0.37 L (0.90-5.00) X 10*3/uL Sodium 147 H (135-145) mmol/L Chloride 113 H (96-109) mmol/L BUN 84.5 H (9.0-27.0) mg/dL Creatinine 6.1 H (0.6-1.5) mg/dL Est GFR (CKD-EPI)AfAm 9.5 L (60.0-200.0) Est GFR (CKD-EPI)NonAf 8.2 L (60.0-200.0) Glucose 146 H (70-110) mg/dL POC Glucose (mg/dL) (70-110) mg/dL Magnesium 2.5 H (1.5-2.4) mg/dL Vitamin B12 1075.0 H (200.0-944.0) pg/mL 08/06/22 08/06/22 08/06/22 Range/Units 11:21 16:38 20:50 RBC (4.40-5.60) X 10*6/uL Hgb (13.0-17.0) g/dL Hct (39.6-50.0) % Immature Gran # (0.00-0.04) X 10*3/uL Lymphocytes # (0.90-5.00) X 10*3/uL Sodium (135-145) mmol/L Chloride (96-109) mmol/L BUN (9.0-27.0) mg/dL Creatinine (0.6-1.5) mg/dL Est GFR (CKD-EPI)AfAm (60.0-200.0) Est GFR (CKD-EPI)NonAf (60.0-200.0) Glucose (70-110) mg/dL POC Glucose (mg/dL) 196 H 160 H 145 H (70-110) mg/dL Magnesium (1.5-2.4) mg/dL Vitamin B12 (200.0-944.0) pg/mL 08/07/22 08/07/22 Range/Units 05:58 07:48 RBC (4.40-5.60) X 10*6/uL Hgb (13.0-17.0) g/dL Hct (39.6-50.0) % Immature Gran # (0.00-0.04) X 10*3/uL Lymphocytes # (0.90-5.00) X 10*3/uL Sodium (135-145) mmol/L Chloride 109 H (96-109) mmol/L BUN 24 H (9.0-27.0) mg/dL Creatinine 1.55 H (0.6-1.5) mg/dL Est GFR (CKD-EPI)AfAm (60.0-200.0) Est GFR (CKD-EPI)NonAf (60.0-200.0) Glucose 114 H (70-110) mg/dL POC Glucose (mg/dL) 134 H (70-110) mg/dL Magnesium (1.5-2.4) mg/dL Vitamin B12 (200.0-944.0) pg/mL Assessment and Plan Plan: Assessment: 1. Acute kidney injury secondary to obstructive uropathy. Creatinine over 20 on admission and is 1.55 today. Nonoliguric. 2. Urinary retention with bilateral hydronephrosis. Has Vázquez catheter. Urology following. On Flomax. 3. Metabolic acidosis secondary to acute kidney injury s/p bicarb drip. Resolved. 4. Hyperkalemia secondary to obstructive uropathy and acidosis. Improved. 5. Anemia. Iron replete. 6. Hypernatremia due to postobstructive diuresis. Improved with D5W. Plan: Change fluids to half-normal saline. Encouraged oral intake. Avoid nephrotoxins. Continue to monitor renal function and urine output. No need for renal replacement therapy.
[2022-08-07] MEDS: amLODIPine 5 MG TAB PO SCH (10:50)
[2022-08-07] MEDS: SODIUM CHLORIDE 0.45% 1,000 ML IV SCH (10:51)
[2022-08-07 11:46] LABS: Glucose,Whole Blood 111 mg/dL (70-110)
[2022-08-07] MEDS: DEXTROSE 5% IN WATER 1,000 ML IV SCH (12:19)
--- NOTE | 2022-08-07 15:48 | P.PN ---
Subjective Progress Note Date: 08/07/22 Patient is a 77-year-old male with a known history of hearing disorder/deafness, history of tongue cancer status post surgery with lymph node biopsy, perforated ulcer in 1984, prior history of smoking and alcohol abuse presents to ER with complaints of back pain. Patient states that he has been having symptoms for the past 1 week. Denies any complaints of shooting down pain in the legs. Pain does not get worse with movement. No numbness or tingling in the legs. For past 1 week patient has been having frequent urination but only can void small quantities. He was also having lower abdominal discomfort. Denies any blood in the urine. No fever no chills. No nausea vomiting abdominal pain or diarrhea or constipation. Patient has not had any primary care physician for many years. Denies any recent medical problems. Bladder ultrasound showed moderate to severe bilateral hydronephrosis. Follow- up visit as advised. EKG showed sinus rhythm. No T wave changes Laboratory showed WBC 10.6 hemoglobin 10.5 and platelets 336 Sodium 135 potassium 6.9 chloride 102 bicarb is 7 BUN 26 and gap 26, BUN 175 and creatinine 20.8 and total protein 6.1 and lipase level is 365 Urinalysis showed moderate blood elevated RBCs and WBCs 4. Placed on Vázquez catheter in the ER with 1300 cc of dark-colored urine. 08/06/2022 Patient is evaluated today resting in bed. Indwelling catheter remains, patient has had significant amount of urinary output. Urine is lightening in color. Creatinine has improved to 6.1. He remains on Bicarb gtt at 80. Reports feeling much better. Nephrology and urology are following. PSA is pending. 08/07/2022 Patient is evaluated sitting up in bed with family at bedside. Family reports patient having acute confusion with overnight and into facility attendant. At the time of my assessment he is alert x 3. Family denies history of dementia but does report that if he were to discharge with [facility] patient would be tugging at the catheter etc and it would be difficult to manage. Creatinine has improved to 1.55 today. PSA has resulted at greater than 150 this is discussed with urology [employer]ACH[employer]. Review of Systems Constitutional: Denied any fatigue denied any fever. Cardio vascular: denied any chest pain, palpitations Gastrointestinal: denied any nausea, vomiting, diarrhea Pulmonary: Denied any shortness of breath cough Neurologic denied any new focal deficits All inpatient medications were reviewed and appropriate changes in these medications as dictated in the interval history and assessment and plan. PHYSICAL EXAMINATION: GENERAL: The patient is alert and oriented x3, not in any acute distress. Well developed, well nourished. HEENT: Pupils are round and equally reacting to light. EOMI. No scleral icterus. No conjunctival pallor. Normocephalic, atraumatic. No pharyngeal erythema. No thyromegaly. CARDIOVASCULAR: S1 and S2 present. No murmurs, rubs, or gallops. PULMONARY: Chest is clear to auscultation, no wheezing or crackles. ABDOMEN: Soft, nontender, nondistended, normoactive bowel sounds. No palpable organomegaly. MUSCULOSKELETAL: No joint swelling or deformity. EXTREMITIES: No cyanosis, clubbing, or pedal edema. NEUROLOGICAL: Gross neurological examination did not reveal any focal deficits. SKIN: No rashes. Assessment and Plan Assessment Acute urinary retention with moderate left hydronephrosis Acute kidney injury due to obstructive uropathy improving Elevated PSA level of greater than 150 Severe hyperkalemia resolved Macrocytic anemia with hemoglobin 10.5 History of tongue cancer s/p surgery with lymph node biopsy History of perforated ulcer in 1984 Hyperglycemia check an A1C Prior history of smoking History of alcohol abuse DVT prophylaxis with heparin subcu GI prophylaxis with Pepcid daily Full Code Plan Continue IV fluids Continue indwelling catheter Continue accuchecks and novolog, check A1C Blood pressure control, started on amlodipine and hydralazine Follow up labs in AM Further recommendations from urology pending The impression and plan of care has been dictated by Jaqueline Farrell, Nurse Practitioner as directed. Dr. Courtney MD I have performed a history and physical examination and medical decision making of this patient, discussed the same with the dictator, and agree with the dictators assessment and plan as written, documented as a scribe. Based on total visit time, I have performed more than 50% of this visit. Objective - Vital Signs Vital signs: Vital Signs Temp 98.5 F 08/07/22 12:53 Pulse 79 08/07/22 12:53 Resp 17 08/07/22 12:53 BP 163/90 08/07/22 12:53 Pulse Ox 96 08/07/22 12:53 FiO2 Intake & Output 08/06/22 08/07/22 08/07/22 18:59 06:59 18:59 Intake Total 118 Output Total 4090 1900 400 Balance -3972 -1900 -400 Intake: Oral 118 Output: Urine 4090 1900 400 Uretheral (Vázquez) 2140 Other: Voiding Method Indwelling Catheter Indwelling Catheter Indwelling Catheter - Labs CBC & Chem 7: 08/06/22 06:23 08/07/22 07:48 Labs: Abnormal Lab Results - Last 24 Hours (Table) 08/06/22 08/06/22 08/06/22 Range/Units 06:23 06:23 16:38 Chloride (98-107) mmol/L BUN (9-20) mg/dL Creatinine (0.66-1.25) mg/dL Glucose (74-99) mg/dL POC Glucose (mg/dL) 160 H (70-110) mg/dL Total PSA >150.0 H (<=4.0) ng/mL RBC Folate 1,073 H (280 - 791) ng/mL 08/06/22 08/07/22 08/07/22 Range/Units 20:50 05:58 07:48 Chloride 109 H (98-107) mmol/L BUN 24 H (9-20) mg/dL Creatinine 1.55 H (0.66-1.25) mg/dL Glucose 114 H (74-99) mg/dL POC Glucose (mg/dL) 145 H 134 H (70-110) mg/dL Total PSA (<=4.0) ng/mL RBC Folate (280 - 791) ng/mL 08/07/22 Range/Units 11:45 Chloride (98-107) mmol/L BUN (9-20) mg/dL Creatinine (0.66-1.25) mg/dL Glucose (74-99) mg/dL POC Glucose (mg/dL) 111 H (70-110) mg/dL Total PSA (<=4.0) ng/mL RBC Folate (280 - 791) ng/mL Assessment and Plan Time with Patient: Less than 30
[2022-08-07 16:43] LABS: Glucose,Whole Blood 110 mg/dL (70-110)
[2022-08-07 20:43] LABS: Glucose,Whole Blood 99 mg/dL (70-110)
[2022-08-07] MEDS ORDERED: QUEtiapine 25 MG TAB PO SCH (21:00)
[2022-08-08] MEDS: SODIUM CHLORIDE 0.45% 1,000 ML IV SCH (00:07)
[2022-08-08] MEDS: INSULIN ASPART (NovoLOG) 100 UNIT/ML VIAL SQ SCH ×3 (00:07→12:18)
[2022-08-08] MEDS: HEPARIN SODIUM,PORCINE/PF 5,000 UNIT/0.5 ML SYRINGE SQ SCH ×2 (01:18→08:12)
[2022-08-08 06:01] LABS: Glucose,Whole Blood 107 mg/dL (70-110)
[2022-08-08 07:53] LABS: African American GFR (CKD) 60 (>60 ml/min/1.73 sqM); Anion Gap 7 mmol/L; Blood Urea Nitrogen 13 mg/dL (9-20); Calcium 9.4 mg/dL (8.4-10.2); Carbon Dioxide 27 mmol/L (22-30); Chloride 104 mmol/L (98-107); Glucose 103 mg/dL (74-99); Non-African American GFR(CKD) 52 (>60 ml/min/1.73 sqM); Potassium 4.6 mmol/L (3.5-5.1); Sodium 138 mmol/L (137-145)
[2022-08-08] MEDS: FAMOTIDINE 20 MG TAB PO SCH (08:12)
[2022-08-08] MEDS: TAMSULOSIN 0.4 MG CAP.ER.24H PO SCH (08:12)
[2022-08-08] MEDS: SODIUM BICARBONATE TAB 650 MG TAB PO SCH (08:12)
[2022-08-08] MEDS: amLODIPine 5 MG TAB PO SCH (08:12)
--- NOTE | 2022-08-08 08:51 | P.PN ---
Subjective Progress Note Date: 08/08/22 Patient is a 77-year-old male who presented to the emergency department on 08/05/22 for lower back pain x 1 week. He denied injury no recent falls. No leg pain or weakness. No numbness or tingling. Patient also reported intermittent dysuria and frequent urination. He denied abdominal pain, nausea, vomiting, diarrhea, constipation. No fever or chills. No chest pain or shortness of breath. Patient has not had a primary care provider for many years. He denied history of kidney disease. No leukocytosis present, his creatinine was 20.83, his urinalysis did not suggest infection. Nephrology following for LAURA. Renal and bladder ultrasound shows moderate to severe bilateral hydronephrosis and an overly distended bladder. The Vázquez catheter was placed with 1.2 L returned. We have been consulted for urinary retention. 08/06 The patient is resting in bed. He does report a history of chronic lower back pain. No history of kidney stones or recurrent UTIs. No prior history of renal failure. The patient does report some dysuria and urinary frequency for approximately one week. His serum creatinine is trending down and was 9.94 yesterday. Today's labs pending. A digital prostate exam was performed by Dr. Olmos and revealed a moderately enlarged prostate and a left sided nodule. The patient's urinary retention is likely secondary to his prostate enlargement. Objective - Vital Signs Vital signs: Vital Signs Temp 98.3 F 08/08/22 02:00 Pulse 82 08/08/22 02:00 Resp 18 08/07/22 20:00 BP 171/97 08/08/22 02:00 Pulse Ox 95 08/08/22 02:00 FiO2 Intake & Output 08/07/22 08/08/22 08/08/22 18:59 06:59 18:59 Output Total 1450 2620 Balance -1450 -2620 Output: Urine 1450 2620 Other: Voiding Method Indwelling Catheter Indwelling Catheter - Exam General: Well developed, well nourished. No acute distress. HEENT: Head is atraumatic, normocephalic. Lungs: Respirations even and nonlabored. On RA. Abdomen/GI: Soft, non-distended. No guarding, rigidity, or abdominal tenderness. : Vázquez catheter draining yellow/blood tinged urine Skin: Warm and dry Neurologic: Alert and oriented 3, CN II-XII grossly intact. No focal deficits. Psychiatric: Appropriate mood and affect. - Labs CBC & Chem 7: 08/06/22 06:23 08/08/22 06:34 Labs: Abnormal Lab Results - Last 24 Hours (Table) 08/06/22 08/06/22 08/07/22 Range/Units 06:23 06:23 07:48 Chloride 109 H (98-107) mmol/L BUN 24 H (9-20) mg/dL Creatinine 1.55 H (0.66-1.25) mg/dL Glucose 114 H (74-99) mg/dL POC Glucose (mg/dL) (70-110) mg/dL Total PSA >150.0 H (<=4.0) ng/mL RBC Folate 1,073 H (280 - 791) ng/mL 08/07/22 08/08/22 Range/Units 11:45 06:34 Chloride (98-107) mmol/L BUN (9-20) mg/dL Creatinine 1.33 H (0.66-1.25) mg/dL Glucose 103 H (74-99) mg/dL POC Glucose (mg/dL) 111 H (70-110) mg/dL Total PSA (<=4.0) ng/mL RBC Folate (280 - 791) ng/mL Assessment and Plan Assessment: The paitient's total PSA is > 150. This is concerning for prostate cancer given the fact that the digital prostate exam revealed an enlarged prostate with a left sided nodule. Further investigation can be done in our office. We will repeat his PSA and then biopsy his prostate. His Vázquez catheter will be removed this morning for a voiding trial and will check a PVR. If he is unable to void or retains a significant amount of urine the Vázquez catheter may be re-inserted. If this is the case, he may go home with the Vázquez catheter. His grandson, To, was updated with the plan of care. The patient's was with To at the time of our conversation via telephone. His creatinine continues to trend down and is 1.33 today. (1) Urinary retention Current Visit: Yes Status: Acute Code(s): R33.9 - RETENTION OF URINE, UNSPECIFIED SNOMED Code(s): 349989293 (2) Hydronephrosis Current Visit: Yes Status: Acute Code(s): N13.30 - UNSPECIFIED HYDRON EPHROSIS SNOMED Code(s): 08495470 (3) Elevated prostate specific antigen (PSA) Current Visit: Yes Status: Acute Code(s): R97.20 - ELEVATED PROSTATE SPECIFIC ANTIGEN [PSA] SNOMED Code(s): 811443896 Plan: - Continue Flomax - Voiding trial this morning - Check PVR - May be discharged from a urological standpoint - Follow up with Dr. Olmos in one week Impression and plan of care have been directed as dictated by the signing physician. Jazmin Dela Cruz nurse practitioner acting as scribe for signing physician. Jazmin Dela Cruz [facility]- Palliative Care/Urology [facility] [id number] Email: [email or web address] The patient has a difficult urologic issue. He came in and renal failure as well as urine retention. He had left-sided hydronephrosis that I silk was due to the urine retention however his prostate exam I did identify a nodule on the left side. His PSA is greater than 150 which would make me concerned that there would be invasive carcinoma into the bladder from the prostate. He failed a voiding trial this morning. He'll be discharged home today. We will see him in the office in one week and repeat a PSA and set him up for a prostate ultrasound with biopsy. Depending on the results of that as well as further testing as to recommendations as to when how to get him out of the urine retention to how to deal with the hydronephrosis and 3 assuming there is prostate cancer how to treat that. This has been discussed at length with the patient.
[2022-08-08] MEDS ORDERED: FLUTICASONE 50MCG/SPRAY NASAL 16GM EA NOSTRIL SCH (09:00)
[2022-08-08] MEDS ORDERED: LORATADINE 10 MG TAB PO SCH (09:00)
[2022-08-08 11:26] LABS: Glucose,Whole Blood 121 mg/dL (70-110)
--- NOTE | 2022-08-08 12:39 | P.PN ---
Subjective Patient is seen in follow-up for acute kidney injury. Renal function improving. Nonoliguric. Oral intake fair. No vomiting or diarrhea. Vázquez catheter removed this morning. Hasn't voided on his own yet. Vital signs are stable. General: No acute distress. Lungs: No audible rhonchi or wheezes. HEART: Rate and Rhythm are regular. ABDOMEN: Nontender. EXTREMITITES: No edema. Objective - Vital Signs Vital signs: Vital Signs Temp 97.9 F 08/08/22 07:26 Pulse 80 08/08/22 07:26 Resp 17 08/08/22 07:26 BP 163/91 08/08/22 07:26 Pulse Ox 95 08/08/22 07:26 FiO2 Intake & Output 08/07/22 08/08/22 08/08/22 18:59 06:59 18:59 Output Total 1450 2620 1450 Balance -1450 -2620 -1450 Output: Urine 1450 2620 1450 Uretheral (Váqzuez) 725 Other: Voiding Method Indwelling Catheter Indwelling Catheter - Labs CBC & Chem 7: 08/06/22 06:23 08/08/22 06:34 Labs: Abnormal Lab Results - Last 24 Hours (Table) 08/06/22 08/08/22 08/08/22 Range/Units 06:23 06:34 11:25 Creatinine 1.33 H (0.66-1.25) mg/dL Glucose 103 H (74-99) mg/dL POC Glucose (mg/dL) 121 H (70-110) mg/dL Total PSA >150.0 H (<=4.0) ng/mL Assessment and Plan Plan: Assessment: 1. Acute kidney injury secondary to obstructive uropathy. Creatinine over 20 on admission and is 1.33 today. Nonoliguric. 2. Urinary retention with bilateral hydronephrosis. Vázquez catheter removed this morning. Urology following. On Flomax. 3. Metabolic acidosis secondary to acute kidney injury s/p bicarb drip. Resol [place]. 4. Hyperkalemia secondary to obstructive uropathy and acidosis. Improved. 5. Anemia. Iron replete. 6. Hypernatremia due to postobstructive diuresis. Status post D5W. Improved. Plan: Hep-Lock IV fluids. Encouraged oral intake. Increase amlodipine to 5 mg twice daily. Avoid nephrotoxins. Continue to monitor renal function and urine output. Vázquez catheter will be reinserted if PVR elevated. Follow up outpatient 1 week post discharge.
[2022-08-08 14:33] VITALS: BP 135/80; PULSE 112; RESP 16; TEMP 97.4
[2022-08-08] MEDS ORDERED: amLODIPine 5 MG TAB PO SCH (21:00)
--- NOTE | 2022-08-09 22:51 | P.DS ---
Providers Date of admission: 08/05/22 09:38 Attending physician: Ramón Dugan Consults: 08/05/22 10:56 Consult Physician Routine Consulting Provider: Silvia Riley Consult Reason/Comments: acute renal failure Do you want consulting provider notified?: Already Contacted 08/05/22 21:21 Consult Physician Routine Consulting Provider: Manjinder Olmos Consult Reason/Comments: Urinary retention Do you want consulting provider notified?: Yes Primary care physician: Stated None Hospital Course: Final Diagnosis Abdominal pain secondary to acute sigmoid and transverse colitis Bloody diarrhea mostly secondary to above, improving. Hypertension with urgency upon admission History of GERD Chronic arthralgia/arthritis on NSAIDs for many years, not an active issue History of factor V Leyden abnormality and MTHFR History of urinary retention Full Code Discharge Disposition Patient is stable for discharge. Has been evaluated by general surgery and GI services. Bloody stool has improved/resolved. Patient will be discharged home and no recommendations for antibiotics patient has completed 5 days of inpatient antibiotic therapy with IV zosyn. Recommended to see GI services on discharge in 2 weeks, and recommended for outpatient colonoscopy in 4 to 6 weeks. Patient to see Primary care on discharge as well. Hospital Course This is a 52 years old female with past medical history of GERD, hypertension, factor V Leyden abnormality in the bladder retention, MTHFR. Patient presents because of stomach pain acute onset, across her middle abdomen about 8/10, starting the night prior to admission. Patient also had several bouts of bloody diarrhea about every 15 to 20 minutes. Patient had some associated nausea without vomiting. She was taking naproxen for chronic arthritis/arthralgia. Initial work up reveals blood pressure of 190/140 which patient had been unable to take her blood pressure medication due to low appetite and nausea. Had luekocytosis of 17. Negative lactic acid. CT of the abdomen and pelvis: Colitis involving the transverse and sigmoid colon likely infectious and inflammatory etiology. There is scattered distal colonic diverticulosis. Patient was started on IV zosyn, IV fluids, bowel rest and was admitted for evaluation by general surgery. C. Dif negative. GI services not available on initial admission. Patient did have improvement in diarrhea and bloody stool has essentially resolved. Patient received 5 days of IV antibiotics. White count has resolved and down to 8.66. GI services did evaluate the patient felt more likely an ischemic colitis. Patient will be followed in 2 to 3 weeks and will need outpatient colonoscopy in 4 to 6 weeks. 08/08/2022 patient is evaluated today sitting up in bed. No further episodes of bloody stool. Diet has been advanced. Has some abdominal discomfort mostly crampy. Passing gas. Has reported 2 nonbloody BMS overnight. Patient has been cleared by general surgery and GI for discharge home. Patients blood pressure has improved to 136/88. Please see medication reconciliation for a list of current medications. Thank you for allowing us to participate in the care of this patient. The impression and plan of care has been dictated by Jaqueline Farrell, Nurse Practitioner as directed. Dr. Courtney MD I have performed a history and physical examination and medical decision making of this patient, discussed the same with the dictator, and agree with the dictators assessment and plan as written, documented as a scribe. Based on total visit time, I have performed more than 50% of this visit. Patient Condition at Discharge: Stable Plan - Discharge Summary Discharge Rx Participant: Yes New Discharge Prescriptions: New Loratadine [Claritin] 5 mg PO DAILY tab Tamsulosin [Flomax] 0.4 mg PO PC-BRKFST #30 cap Fluticasone Nasal [place] [Flonase Nasal [place]] 2 spray EA NOSTRIL DAILY ml Famotidine [Pepcid] 20 mg PO DAILY #30 tab Sodium Bicarbonate Tab 650 mg PO BID #60 tab Acetaminophen Tab [Tylenol] 650 mg PO Q6HR PRN tab PRN Reason: Mild Pain Or Fever > 100.5 amLODIPine [Norvasc] 5 mg PO BID #60 tab Discontinued Naproxen Sodium [Aleve] 220 mg PO DAILY Discharge Medication List Acetaminophen Tab [Tylenol] 650 mg PO Q6HR PRN tab 08/08/22 [Rx] Famotidine [Pepcid] 20 mg PO DAILY #30 tab 08/08/22 [Rx] Fluticasone Nasal [place] [Flonase Nasal [place]] 2 spray EA NOSTRIL DAILY ml 08/08/22 [Rx] Loratadine [Claritin] 5 mg PO DAILY tab 08/08/22 [Rx] Sodium Bicarbonate Tab 650 mg PO BID #60 tab 08/08/22 [Rx] Tamsulosin [Flomax] 0.4 mg PO PC-BRKFST #30 cap 08/08/22 [Rx] amLODIPine [Norvasc] 5 mg PO BID #60 tab 08/08/22 [Rx] Follow up Appointment(s)/Referral(s): Sol Joe MD [REFERRING] - 1-2 Days (Please call) None,Stated [Primary Care Provider] - 1-2 days David Godinez DO [STAFF PHYSICIAN] - 1 Week (PLease call) Manjinder Olmos MD [STAFF PHYSICIAN] - 08/21/22 7:00 am Ambulatory/Diagnostic Orders: Basic Metabolic Panel [LAB.AMB] Time Frame: 3 Days, Location: None Selected Patient Instructions/Handouts: Vázquez Catheter Placement and Care (DC) Activity/Diet/Wound Care/Special Instructions: Patient needs 1 week follow up with Dr Godinez in 1 week Patient to repeat labs in 2 to 3 days to monitor kidney function Follow up with urology for repeat PSA and biopsy in the office patient to discharge with indwelling catheter in place Discharge Disposition: HOME SELF-CARE
--- NOTE | 2022-08-09 23:04 | P.DS ---
Providers Date of admission: 08/05/22 09:38 Attending physician: Ramón Dugan Consults: 08/05/22 10:56 Consult Physician Routine Consulting Provider: Silvia Riley Consult Reason/Comments: acute renal failure Do you want consulting provider notified?: Already Contacted 08/05/22 21:21 Consult Physician Routine Consulting Provider: Manjinder Olmos Consult Reason/Comments: Urinary retention Do you want consulting provider notified?: Yes Primary care physician: Stated None Hospital Course: Final Diagnosis Acute urinary retention with moderate left hydronephrosis Acute kidney injury due to obstructive uropathy failed voiding trial and will discharge with indwelling catheter Elevated PSA level of greater than 150 Severe hyperkalemia resolved Macrocytic anemia with hemoglobin 10.5 Hypertension 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 Patient will discharge with indwelling catheter in place. Patient to continue on flomax daily. Patient is recommended to discontinue naproxen at this time. Repeat labs BMP in 3 days. Patient requires close follow up with Dr. Olmos/urology on discharge for repeat PSA and biopsy appointment scheduled for aug 21 2022. Patient to also follow up with Dr. Godinez in 1 week. Patient does not have PCP has been referred to Dr. Sol Menon office or may choose a PCP of his preference. He is recommended to establish care on discharge. Hospital Course Patient is a 77-year-old male with a known history of hearing disorder/deafness, history of tongue cancer status post surgery with lymph node biopsy, perforated ulcer in 1984, prior history of smoking and alcohol abuse presents to ER with complaints of back pain. Patient states that he has been having symptoms for the past 1 week. Denies any complaints of shooting down pain in the legs. Pain does not get worse with movement. No numbness or tingling in the legs. For past 1 week patient has been having frequent urination but only can void small quantities. He was also having lower abdominal discomfort. Denies any blood in the urine. No fever no chills. No nausea vomiting abdominal pain or diarrhea or constipation. Patient has not had any primary care physician for many years. Denies any recent medical problems. Bladder ultrasound showed moderate to severe bilateral hydronephrosis. Patient had potassium of 6.9 and creatinine of 20.8. He had urinary catheter placed with 1300 CC of dark urine returned. He is admitted for acute renal failure and consult placed to nephrology and urology. Patients renal function improved with placement of the IDC and his creatinine is down to 1.33. He did have elevated PSA of greater than 150 and digital rectal exam was performed by urology and patient was found to have moderately enlarged prostate and a left sided nodule. Patient was started on flomax in patient and did not pass his voiding trial. He will discharge home with IDC in place and will need to see urology in the office to undergo biopsy and repeat PSA testing. Patient was treated with IV bicarbonate and hyperkalemia was treated. He has been transitioned to oral sodium bicarbonate and recommended to see nephrology on follow up . He did have hypertension this admission and was started on a mlodipine and hydralazine. Blood pressure improved. 08/08/2022 Patient is evaluated today sitting in bed with family at the bedside. No acute events overnight. Patient denies shortness of breath, denies chest pain No nausea, vomiting or diarrhea. Has had bowel movement. No abdominal tenderness. IDC in place, lungs are clear, S1 S2 auscultated, abdomen is soft and nontender. Alert x 3. PT evaluation done and patient is safe for discharge home. Patient has been cleared by nephrology and urology. Labs today reveal sodium of 138, potassium 4.6, BUN 13, creatine 1.33, glucose 121, magnesium 1.9. Temperature 97.9, heart rate 80, blood pressure 163/91, 95% room air. Please see medication reconciliation for a list of current medication. Thank you for allowing us to participate in the care of this patient. The impression and plan of care has been dictated by Jaqueline Farrell, Nurse Practitioner as directed. Dr. Courtney MD I have performed a history and physical examination and medical decision making of this patient, discussed the same with the dictator, and agree with the dictators assessment and plan as written, documented as a scribe. Based on total visit time, I have performed more than 50% of this visit. Patient Condition at Discharge: Stable Plan - Discharge Summary Discharge Rx Participant: Yes New Discharge Prescriptions: New Loratadine [Claritin] 5 mg PO DAILY tab Tamsulosin [Flomax] 0.4 mg PO PC-BRKFST #30 cap Fluticasone Nasal [place] [Flonase Nasal [place]] 2 spray EA NOSTRIL DAILY ml Famotidine [Pepcid] 20 mg PO DAILY #30 tab Sodium Bicarbonate Tab 650 mg PO BID #60 tab Acetaminophen Tab [Tylenol] 650 mg PO Q6HR PRN tab PRN Reason: Mild Pain Or Fever > 100.5 amLODIPine [Norvasc] 5 mg PO BID #60 tab Discontinued Naproxen Sodium [Aleve] 220 mg PO DAILY Discharge Medication List Acetaminophen Tab [Tylenol] 650 mg PO Q6HR PRN tab 08/08/22 [Rx] Famotidine [Pepcid] 20 mg PO DAILY #30 tab 08/08/22 [Rx] Fluticasone Nasal [place] [Flonase Nasal [place]] 2 spray EA NOSTRIL DAILY ml 08/08/22 [Rx] Loratadine [Claritin] 5 mg PO DAILY tab 08/08/22 [Rx] Sodium Bicarbonate Tab 650 mg PO BID #60 tab 08/08/22 [Rx] Tamsulosin [Flomax] 0.4 mg PO PC-BRKFST #30 cap 08/08/22 [Rx] amLODIPine [Norvasc] 5 mg PO BID #60 tab 08/08/22 [Rx] Follow up Appointment(s)/Referral(s): Sol Joe MD [REFERRING] - 1-2 Days (Please call) None,Stated [Primary Care Provider] - 1-2 days David Godinez DO [STAFF PHYSICIAN] - 1 Week (PLease call) Manjinder Olmos MD [STAFF PHYSICIAN] - 08/21/22 7:00 am Ambulatory/Diagnostic Orders: Basic Metabolic Panel [LAB.AMB] Time Frame: 3 Days, Location: None Selected Patient Instructions/Handouts: Vázquez Catheter Placement and Care (DC) Activity/Diet/Wound Care/Special Instructions: Patient needs 1 week follow up with Dr Godinez in 1 week Patient to repeat labs in 2 to 3 days to monitor kidney function Follow up with urology for repeat PSA and biopsy in the office patient to discharge with indwelling catheter in place Discharge Disposition: HOME SELF-CARE
== END 2022-08-08 16:38 | disposition home or self-care (01) | DRG 683 ==
LOC: EC 07:43 → 4SSUR 09:38
PROVIDERS: ADMIT Internal Medicine; ATTEND Internal Medicine
DX: N17.9 Acute kidney failure, unspecified (principal); E87.0 Hyperosmolality and hypernatremia; E87.20 Acidosis, unspecified; N13.6 Pyonephrosis; D53.9 Nutritional anemia, unspecified; T50.2X5A Adverse effect of carbonic-anhydrase inhibitors, benzothiadiazides and other diuretics, initial encounter; E87.5 Hyperkalemia; F10.10 Alcohol abuse, uncomplicated; H91.90 Unspecified hearing loss, unspecified ear; R33.8 Other retention of urine; N40.0 Benign prostatic hyperplasia without lower urinary tract symptoms; N40.1 Benign prostatic hyperplasia with lower urinary tract symptoms; Z85.810 Personal history of malignant neoplasm of tongue; Z87.891 Personal history of nicotine dependence; X58.XXXA Exposure to other specified factors, initial encounter; Z87.11 Personal history of peptic ulcer disease
CPT/HCPCS: 36415; 51702; 51798; 76770; 80048; 80053; 81001; 82607; 82728; 82747; 83036; 83540; 83550; 83690; 83735; 84132; 84153; 85025; 93005; 94640; 96361; 96365; 96375; 99285

== ENCOUNTER → 2022-08-11 | Outpatient (CLI) | payer MEDICARE ==
[2022-08-11 13:49] LABS: African American GFR (CKD) 60.9 (60.0-200.0); Anion Gap 9.2 mmol/L (10.00-18.00); BUN/Creat Ratio 21.22 Ratio (12.00-20.00); Blood Urea Nitrogen 27.8 mg/dL (9.0-27.0); Carbon Dioxide 26.9 mmol/L (20.0-27.5); Non-African American GFR(CKD) 52.5 (60.0-200.0); Potassium 4.5 mmol/L (3.5-5.5)
== END | disposition home or self-care (01) ==
LOC: LABWHC1 08:44
PROVIDERS: ATTEND Nurse Practitioner Family
DX: N17.9 Acute kidney failure, unspecified (principal)
CPT/HCPCS: 36415; 80048

== ENCOUNTER → 2022-10-02 | Outpatient (CLI) | payer MEDICARE ==
[2022-10-02 10:41] LABS: African American GFR (CKD) 66 (>60 ml/min/1.73 sqM); Blood Urea Nitrogen 26 mg/dL (9-20); Non-African American GFR(CKD) 58 (>60 ml/min/1.73 sqM)
--- NOTE | 2022-10-02 10:53 | XR ---
EXAMINATION TYPE: XR chest 2V DATE OF EXAM: 10/02/2022 10:16 AM COMPARISON: None TECHNIQUE: XR chest 2V Frontal and lateral views of the chest. CLINICAL INDICATION:Male, 77 years old with history of C61 Prostate cancer; FINDINGS: Lungs/Pleura: There is no evidence of pleural effusion, focal consolidation, or pneumothorax. Pulmonary vascularity: Unremarkable. Heart/mediastinum: Cardiomediastinal silhouette is unremarkable. Atherosclerotic calcifications are seen in the aorta. Musculoskeletal: No acute osseous pathology. Dextro sclerotic curvature. Other findings: Surgical clips in the upper abdomen. IMPRESSION: No acute cardiopulmonary disease/process.
--- NOTE | 2022-10-02 20:34 | CT ---
EXAMINATION TYPE: CT abdomen pelvis w con DATE OF EXAM: 10/02/2022 COMPARISON: NONE HISTORY: 77-year-old male C61, Prostate cancer. TECHNIQUE: Contiguous axial scanning of the abdomen and pelvis following administration of 80 ml Isov ue 300 IV contrast. Delayed images through the kidneys and coronal/sagittal reconstructions performe d. CT DLP: 703.1 mGycm Automated exposure control for dose reduction was used. FINDINGS: LUNG BASES: No significant abnormality is appreciated. LIVER/GB: No significant abnormality is appreciated. Postoperative change at the GE junction. Additional postsurgical change of gastrojejunostomy. No focal liver lesion or biliary ductal dilatation. Gallbladder, adrenal glands, spleen, and pancreas within normal limits. The right kidney is asymmetrically atrophic with moderate hydronephrosis and hydroureter. There is de layed excretion of contrast from the right kidney. Mild fullness of the left renal collecting system. Scattered borderline and mildly distended small bowel loops throughout the left side of the abdomen m easuring up to 3.1 cm probably transient or represent a mild generalized ileus. Normal appendix. There is scattered moderate stool. Sigmoid diverticulosis. No pericolonic inflammato ry change seen. No mesenteric or retroperitoneal lymphadenopathy identified. There is severe circumferential wall thickening of the bladder. A Cota catheter is in place. There i s contiguous soft tissue with the adjoining, markedly enlarged prostate gland which fills the lower p jason, measuring up to 8.9 x 8.8 cm. Poor delineation between the mass with the anterior wall of the adjacent rectum and poor delineation with the adjacent obturator internus muscle as well as the adjacent right levator ani musculature. Th ere is deformity of the bilateral seminal vesicles as well. No abnormal fluid collection in the pelvi s or otherwise any pelvic lymphadenopathy seen. OTHER: No significant additional abnormality is seen. PELVIS: No gross abnormality seen. OSSEOUS STRUCTURES: Moderate degenerative change in both hips. Multilevel endplate sclerosis likely o n the basis of endplate spondylosis. Degenerated levoconvex curvature is noted. IMPRESSION: 1. SEVERE PROSTATOMEGALY UP TO 8.9 CM, FILLING THE LOWER PELVIS. THERE IS LOSS OF THE INTERVENING FAT PLANE WITH THE RIGHT OBTURATOR INTERNUS, ANTERIOR WALL OF THE RECTUM, RIGHT LEVATOR ANI MUSCULATURE, BILATERAL SEMINAL VESICLES, AND THE BLADDER. DIRECT NEOPLASTIC INVASION IS SUSPECTED. 2. THE BLADDER IS MODERATE TO SEVERELY THICKENED. THIS COULD REPRESENT CONTIGUOUS TUMOR EXTENSION AND /OR SEVERE BLADDER WALL HYPERTROPHY FROM CHRONIC OUTLET OBSTRUCTION. A COTA CATHETER IS IN PLACE. 3. SECONDARY MODERATE RIGHT-SIDED HYDRONEPHROSIS AND MILD ON THE LEFT. SUSPECT ASSOCIATED ATROPHY OF THE RIGHT KIDNEY. REPORT MULTILEVEL ENDPLATE SCLEROSIS IN THE LUMBAR SPINE FELT TO BE ON A DEGENERATIVE BASIS.
--- NOTE | 2022-10-02 22:38 | NM ---
EXAMINATION TYPE: NM bone scan whole body DATE OF EXAM: 10/02/2022 COMPARISON: Correlation CT same day CLINICAL INDICATION: Male, 77 years old with history of C61 Prostate cancer; TECHNIQUE: Delayed whole-body scanning was performed following the injection of 24.1 mCi Tc 99m MDP. Images acquired 3.5 hours post injection. FINDINGS: Degenerative tracer activity at both shoulders, sternoclavicular joints, left elbow, at the level of the MCP joints on the right and at the bases, the right. Also at the right first MTP joint. Focal increased tracer activity along the lumbar spine in a pattern most suggestive of degenerative c hange. Also scattered within the posterior elements of the cervical spine. No suspicious distribution of tracer to clearly indicate osseous metastatic disease. IMPRESSION: Degenerative tracer activity at the shoulders, sternoclavicular joints, right first MTP joint, right base of the thumb, and right proximal fingers. Activity within the lumbar spine is more suggestive of a degenerative etiology rather than metastatic disease. No convincing scintigraphic evidence for oss eous metastatic disease at this time.
== END | disposition home or self-care (01) ==
LOC: RADNMMAIN 09:43
PROVIDERS: ATTEND Urology
DX: C61 Malignant neoplasm of prostate (principal); N13.30 Unspecified hydronephrosis; M51.36 Other intervertebral disc degeneration, lumbar region; N40.0 Benign prostatic hyperplasia without lower urinary tract symptoms; Z85.46 Personal history of malignant neoplasm of prostate
CPT/HCPCS: 82565; 84520; 71046; 74177; 36415; 78306; A9503; Q9967

== ENCOUNTER → 2023-05-13 | Outpatient (CLI) | payer MEDICARE ==
[2023-05-13 15:04] LABS: Basophils # (A) 0.05 X 10*3/uL (0.00-0.10); Basophils % (A) 0.9 %; Eosinophils # (A) 0.32 X 10*3/uL (0.04-0.35); Eosinophils % (A) 5.7 %; HCT 36.2 % (39.6-50.0); HGB 11.7 g/dL (13.0-17.0); Lymphocytes # (A) 0.89 X 10*3/uL (0.90-5.00); Lymphocytes % (A) 15.8 %; MCH 33.2 pg (27.0-32.0); MCHC 32.3 g/dL (32.0-37.0); MCV 102.8 FL (80.0-97.0); Mean Platelet Volume 11.2 FL (9.5-12.2); Monocytes % (A) 8.9 %; NRBC Per 100 WBC 0 X 10*3/uL (0.00-0.01); Neutrophils # (A) 3.84 X 10*3/uL (1.80-7.70); Neutrophils % (A) 68.3 %; Platelet Count 243 X 10*3/uL (140-440); RBC 3.52 X 10*6/uL (4.40-5.60); RDW 13.5 % (11.5-14.5); WBC 5.62 X 10*3/uL (4.50-10.00)
[2023-05-13 15:06] LABS: ALT 12 U/L (10-49); AST 17 U/L (14-35); Albumin 4.2 g/dL (3.8-4.9); Albumin/Globulin Ratio 2.21 Ratio (1.60-3.17); Alkaline Phosphatase 59 U/L (41-126); BUN/Creat Ratio 15.07 Ratio (12.00-20.00); Blood Urea Nitrogen 21.1 mg/dL (9.0-27.0); Calcium 9.7 mg/dL (8.7-10.3); Chloride 104 mmol/L (96-109); Globulin 1.9 g/dL (1.6-3.3); Glucose 104 mg/dL (70-110); Potassium 4.4 mmol/L (3.5-5.5); Sodium 141 mmol/L (135-145); Total Bilirubin 0.3 mg/dL (0.3-1.2); Total Protein 6.1 g/dL (6.2-8.2)
[2023-05-13 17:07] LABS: Appearance,Urine Clear (Clear); Bilirubin,Urine Negative (Negative); Blood,Urine Negative (Negative); Color,Urine Yellow (Yellow); Ketones,Urine Negative (Negative); Nitrite,Urine Negative (Negative); Specific Gravity,Urine 1.007 (1.001-1.030); Urobilinogen,Urine 0.2 E.U./DL
[2023-05-13 17:29] LABS: Bacteria,Urine Trace
== END | disposition home or self-care (01) ==
LOC: RADXRMAIN 09:18
PROVIDERS: ATTEND Urology
DX: Z01.812 Encounter for preprocedural laboratory examination (principal); C61 Malignant neoplasm of prostate; R33.9 Retention of urine, unspecified
CPT/HCPCS: 80053; 81001; 85025; 87086

== ENCOUNTER → 2023-05-17 | Day surgery (SDC) | payer MEDICARE ==
--- NOTE | 2023-05-16 12:07 | P.GSHP ---
History of Present Illness H&P Date: 05/16/23 77 yo male with urine retention secondary to prostate cancer. He has a larger prostate [110 ml] on initial evaluation He has had hormonal therapy for several months and has remained retention. He comes for a turp. The risks and complications have been explained. - Constitutional Constitutional: Denies chills, Denies fever - EENT Eyes: denies blurred vision, denies pain Ears, nose, mouth and throat: Denies headache, Denies sore throat - Cardiovascular Cardiovascular: Denies chest pain, Denies shortness of breath - Respiratory Respiratory: Denies cough, Denies 7 - Gastrointestinal Gastrointestinal: Denies abdominal pain, Denies diarrhea, Denies nausea, Denies vomiting - Genitourinary (Female) Genitourinary: Denies dysuria, Denies hematuria - Genitourinary (Male) Genitourinary: Denies dysuria, Denies hematuria - Musculoskeletal Musculoskeletal: Denies myalgias - Integumentary Integumentary: Denies pruritus, Denies rash - Neurological Neurological: Denies numbness, Denies weakness - Psychiatric Psychiatric: Denies anxiety, Denies depression - Endocrine Endocrine: Denies fatigue, Denies weight change Past Medical History Past Medical History: Cancer, GERD/Reflux, Hearing Disorder / Deafness, Hypertension, Osteoarthritis (OA) Additional Past Medical History / Comment(s): 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 hx of kidney issues 08/12. Ghandi, told much better now. numbness at times to lower extremities History of Any Multi-Drug Resistant Organisms: None Reported Additional Past Surgical History / Comment(s): perforated ulcer 1984, tongue surgery for cancer tumor with lymph node biopsy, left 1st finger tendon repair Past Anesthesia/Blood Transfusion Reactions: No Reported Reaction Smoking Status: Current every day smoker - Past Family History Mother Family Medical History: No Reported History Medications and Allergies Home Medications Medication Instructions Recorded Confirmed Type Acetaminophen Tab [Tylenol] 650 mg PO Q6HR PRN tab 08/08/22 05/10/23 Rx Famotidine [Pepcid] 20 mg PO DAILY #30 tab 08/08/22 05/10/23 Rx Tamsulosin [Flomax] 0.4 mg PO PC-BRKFST #30 cap 08/08/22 05/10/23 Rx Unk Glucosamine 1 tab PO DAILY 05/10/23 05/10/23 History Enzalutamide [Xtandi] 160 mg PO HS 05/10/23 05/10/23 History Unk Calcium 1 tab PO DAILY 05/10/23 05/10/23 History Unk Vitamin B 1 tab PO DAILY 05/10/23 05/10/23 History Unk Vitamin D 1 tab PO DAILY 05/10/23 05/10/23 History amLODIPine [Norvasc] 5 mg PO BID 05/10/23 05/10/23 History Allergies Allergy/AdvReac Type Severity Reaction Status Date / Time No Known Allergies Allergy Verified 05/10/23 11:27 Surgical - Exam - General well developed, well nourished, no distress - Eyes normal ocular movement, no icteric - ENT no hearing loss, no congestion - Neck no masses, trachea midline - Respiratory normal respiratory effort, clear to auscultation - Abdomen Abdomen: soft, non tender, no guarding, no rigid, no rebound - Genitourinary indwelling catheter - Integumentary no rash, no abnormal pigmentation - Neurologic no disoriented, no combative - Psychiatric oriented to time, oriented to person, oriented to place, speech is normal, m victor hugo intact Assessment and Plan Assessment: Impression: urine retention secondary prostate cancer Rec: Bipolar turp
[~2023-05-17] MED LIST: AMPICILLIN 1,000 MG in SODIUM CHLORIDE 0.9% 50 ML IVPB PRN; DEXAMETHASONE SOD PHOSPHATE 4 MG/ML 1 ML VIAL IV ONE; GENTAMICIN 120 MG in SODIUM CHLORIDE 0.9% 100 ML IVPB PRN; HYDROmorphone (PF) 1 MG/ML ONE; HYDROmorphone 0.5 MG/0.5 ML SYRINGE IVP PRN; LACTATED RINGERS 1,000 ML IV ONE; LACTATED RINGERS 1,000 ML IV SCH; LIDOCAINE 1% (10MG/ML) FOR IV START INTRADERMA PRN; LIDOCAINE 1% INJ 10MG/ML (20 ML MDV) ONE; MIDAZOLAM 2 MG/2 ML VIAL IV PRN; MIDAZOLAM 2 MG/2 ML VIAL ONE; ONDANSETRON 4 MG/2 ML VIAL IVP ONE; PROPOFOL 10 MG/ML 20 ML VIAL IV ONE; ePHEDrine 50 MG/ML 1 ML VIAL ONE; fentaNYL (PF) 50 MCG/ML 2 ML AMP ONE
--- NOTE | 2023-05-17 13:27 | P.OP ---
Date of Procedure: 05/17/23 Preoperative Diagnosis: Urine retention secondary to prostate cancer Postoperative Diagnosis: Same Procedure(s) Performed: Bipolar channel TURP Anesthesia: BRANDON Surgeon: Manjinder Olmos Estimated Blood Loss (ml): 50 Pathology: other (Prostate) Condition: stable Disposition: PACU Indications for Procedure: The patient is 77. He presented in urine retention with significant prostate cancer. His biopsies were 12 out of 12 with Christine 8 prostate cancer. He has been complete androgen blockade ever since. He failed several attempts at spontaneous voiding. Comes for a bipolar TURP. He'll continue with the hormonal therapy for his metastatic, locally invasive prostate cancer Description of Procedure: Patient brought operating suite. Given a general anesthetic. Placed lithotomy position with a sterile prep and drape. Under direct vision the 25-Hungarian sheath direct vision obturator introduced and the urethra. Anterior urethra is normal. The prostatic urethra was obstructing infected of the prostate cancer. The bladder arreola severely trabeculated and catheter edema. With the Contreras resectoscope, bipolar super sect loop the patient underwent transurethral resection. I first resect the middle lobe and floor the prostate. I then rese ct lateral lobes and then anterior lobe bladder neck to verumontanum. At the end of the procedure the scope manipulates much more easily through the prostate. There does not appear to be any remaining obstruction although I'm sure there is still fixed prosthetic cancer remaining. I removed the scope and cred the bladder with a good stream. An 18-Hungarian Vázquez catheters introduced the bladder with clear urine return. The patient is awakened and returned recovery room good condition. Blood loss is approximately 50 mL.2
[2023-05-17 14:00] VITALS: TEMP 97.6
[2023-05-17 15:18] VITALS: BP 136/70; PULSE 66; RESP 16
== END | disposition home or self-care (01) ==
LOC: OR 10:11
PROVIDERS: ATTEND Urology
DX: C61 Malignant neoplasm of prostate (principal); I10 Essential (primary) hypertension; K21.9 Gastro-esophageal reflux disease without esophagitis; M19.90 Unspecified osteoarthritis, unspecified site; F17.200 Nicotine dependence, unspecified, uncomplicated; Z79.899 Other long term (current) drug therapy
CPT/HCPCS: 52601; 88305; J2250; J1100; J2405; J2001; J3010; J1580; J0290; J1170; J2704